=== PATIENT | female | born 1990 | race American Indian/Alaskan Native ===

== ENCOUNTER 2017-12-25 08:23 | Emergency (ER) | payer MEDICAID ==
[2017-12-25 09:20] LABS: Basophils # (Auto) 0.1 K/mm3 (0.0-0.1); Basophils % (Auto) 0.7 % (0.0-1.8); Eosinophils # (Auto) 0.1 K/mm3 (0.0-0.4); Eosinophils % (Auto) 0.9 % (0.0-4.3); Hematocrit 37.5 % (30.3-42.9); Hemoglobin 12.8 gm/dl (10.1-14.3); Lymphocytes # (Auto) 1.8 K/mm3 (1.2-5.4); Lymphocytes % (Auto) 16.8 % (13.4-35.0); Mean Corpuscular HGB Conc 34 % (30-34); Mean Corpuscular Hemoglobin 31 pg (28-32); Mean Corpuscular Volume 92 fl (79-97); Monocytes # (Auto) 0.7 K/mm3 (0.0-0.8); Platelet Count 257 K/mm3 (140-440); Red Blood Count 4.07 M/mm3 (3.65-5.03)
[2017-12-25 09:33] LABS: Alanine Aminotransferase 17 units/L (7-56); Albumin 4.3 g/dL (3.9-5); BUN/Creatinine Ratio 13; Blood Urea Nitrogen 9 mg/dL (7-17); Calcium 8.7 mg/dL (8.4-10.2); Hemolysis Index 7; Lipase 13 units/L (13-60)
[2017-12-25 12:16] LABS: HCG Qualitative,Urine Negative (Negative)
[2017-12-25 12:19] LABS: Bilirubin,Urine NEG (Negative); Blood,Urine LG (Negative); Color,Urine Yellow (Yellow); Mucus,Urine 2+ /HPF; Nitrite,Urine NEG (Negative); Protein,Urine <15 mg/dL mg/dL (Negative); Urobilinogen,Urine < 2.0 mg/dL (<2.0)
[2017-12-25 12:21] LABS: RBC,Urine > 182.0 /HPF (0.0-6.0)
[2017-12-25] MEDS ORDERED: ZOFRAN ODT PO ONE ×2 (12:27→14:06)
[2017-12-25] MEDS ORDERED: ZOFRAN ODT ONE (12:29)
[2017-12-25] MEDS ORDERED: BENTYL PO ONE (14:06)
--- NOTE | 2017-12-25 14:06 | Emergency Department Report ---
ED N/V/D HPI - General Chief complaint: Nausea/Vomiting/Diarrhea Stated complaint: FEVER, CHILLS VOMITING Time Seen by Provider: 12/25/17 13:42 Source: patient, family Mode of arrival: Ambulatory Limitations: No Limitations - History of Present Illness Initial comments: Patient reports nausea and vomiting with fever and chills for 3 days. Complaint abdominal cramping and that she started her period yesterday. Report diarrhea area 2 weeks on and off. Denies any back pain. Pain to abdomen is 10 out of 10, crampy no [id number] medication taken. Patient had similar incident with menses. MD complaint: nausea, vomiting, diarrhea, abdominal pain Onset/Timin -: week(s) Description of Vomiting: food contents Description of Diarrhea: water Associated Abdominal Pain: Yes Location: [place] Radiation: none Severity: severe Pain Scale: 10 Quality: cramping Consistency: constant Improves with: none Worsens with: none Context: possible food poisoning, other (unknown) Associated Symptoms: nausea/vomiting. denies: myalgias, chest pain, cough, diaphoresis, fever/chills, headaches, loss of appetite, malaise, rash, dysuria, shortness of breath, syncope, weakness - Related Data Previous Rx's Medication Instructions Recorded Last Taken Type Naproxen [EC-Naprosyn] 500 mg PO BID PRN #12 tablet. 12/25/17 Unknown Rx Promethazine [Phenergan TAB] 25 mg PO Q6HR PRN #12 tab 12/25/17 Unknown Rx Allergies Allergy/AdvReac Type Severity Reaction Status Date / Time No Known Allergies Allergy Unverified 12/25/17 08:52 ED Review of Systems ROS: Stated complaint: FEVER, CHILLS VOMITING Other details as noted in HPI Comment: All other systems reviewed and negative Constitutional: chills, fever Eyes: denies: eye pain ENT: denies: ear pain, throat pain, congestion Respiratory: no symptoms reported Cardiovascular: denies: chest pain, palpitations, syncope Gastrointestinal: abdominal pain, nausea, vomiting, diarrhea. denies: constipation, hematemesis, melena, hematochezia Genitourinary: denies: urgency, dysuria, frequency, hematuria Musculoskeletal: denies: back pain, joint swelling, arthralgia, myalgia Skin: denies: rash Neurological: denies: headache, weakness, numbness, paresthesias, confusion, abnormal gait, vertigo ED Past Medical Hx - Past Medical History Previous Medical History?: No - Surgical History Past Surgical History?: No - Family History Family history: no significant - Social History Smoking Status: Current Every Day Smoker Substance Use Type: Alcohol, Marijuana, Other - Medications Home Medications: Home Medications Medication Instructions Recorded Confirmed Last Taken Type Naproxen [EC-Naprosyn] 500 mg PO BID PRN #12 tablet.dr 12/25/17 Unknown Rx Promethazine [Phenergan TAB] 25 mg PO Q6HR PRN #12 tab 12/25/17 Unknown Rx ED Physical Exam - General Limitations: No Limitations General appearance: alert, in no apparent distress - Head Head exam: Present: atraumatic, normocephalic, normal inspection - Eye Eye exam: Present: normal appearance, PERRL, EOMI. Absent: periorbital swelling , periorbital tenderness Pupils: Present: normal accommodation - ENT ENT exam: Present: normal exam, normal orophraynx, mucous membranes moist, TM's normal bilaterally, normal external ear exam - Neck Neck exam: Present: normal inspection, full ROM. Absent: tenderness, meningismus, lymphadenopathy, thyromegaly - Respiratory Respiratory exam: Present: normal lung sounds bilaterally. Absent: respiratory distress, chest wall tenderness, accessory muscle use - Cardiovascular Cardiovascular Exam: Present: regular rate, normal rhythm, normal heart sounds. Absent: systolic murmur, diastolic murmur - GI/Abdominal GI/Abdominal exam: Present: soft, normal bowel sounds. Absent: distended, tenderness, guarding, rebound, rigid, organomegaly, mass, bruit, pulsatile mass , hernia - Extremities Exam Extremities exam: Present: normal inspection, full ROM, normal capillary refill , other (no clubbing, cyanosis or edema. +2 pulses to all extremities). Absent : tenderness, pedal edema, joint swelling, calf tenderness - Back Exam Back exam: Present: full ROM, other (ambulance without any difficulties). Absent: normal inspection, tenderness, CVA tenderness (R), CVA tenderness (L), muscle spasm, paraspinal tenderness, vertebral tenderness, rash noted - Neurological Exam Neurological exam: Present: alert, oriented X3, normal gait. Absent: motor sensory deficit, reflexes normal - Psychiatric Psychiatric exam: Present: normal affect, normal mood - Skin Skin exam: Present: warm, dry, intact, normal color. Absent: rash ED Course Vital Signs 12/25/17 12/25/17 08:53 18:42 Temperature 97.9 F 98.1 F Pulse Rate 83 74 Respiratory 16 18 Rate Blood Pressure 135/98 Blood Pressure 114/54 [Left] O2 Sat by Pulse 100 100 Oximetry - Reevaluation(s) Reevaluation #1: 12/25/17 15:30 Patient given Zofran ODT and then fell by mouth and she vomited. Not able to tolerate oral liquids at present therefore we'll start IV fluid with IV Anzemet emetic and pain medication along with Bentyl. Reevaluation #2: 12/25/17 17:02 Patient still with cramping and nausea after Zofran and Reglan. She received her first liter of normal saline. We'll give Ativan and IV fluid normal saline Reevaluation #3: 12/25/17 17:52 Patient given additional 4 mg of morphine IV and Zofran 4 mg IV. She says she is feeling better. Patient on route to ultrasound. Reevaluation #4: 12/25/17 19:10 Patient says she is feeling much better after 2 L of fluid, pain control and Zofran. She is able to tolerate by mouth liquids without any nausea or vomiting. ED Medical Decision Making - Lab Data Result diagrams: 12/25/17 09:00 12/25/17 09:00 Lab Results 12/25/17 12/25/17 12/25/17 Range/Units 09:00 09:00 11:07 WBC 10.5 (4.5-11.0) K/mm3 RBC 4.07 (3.65-5.03) M/mm3 Hgb 12.8 (10.1-14.3) gm/dl Hct 37.5 (30.3-42.9) % MCV 92 (79-97) fl MCH 31 (28-32) pg MCHC 34 (30-34) % RDW 13.0 L (13.2-15.2) % Plt Count 257 (140-440) K/mm3 Lymph % (Auto) 16.8 (13.4-35.0) % [place] % (Auto) 7.0 (0.0-7.3) % Eos % (Auto) 0.9 (0.0-4.3) % Baso % (Auto) 0.7 (0.0-1.8) % Lymph # 1.8 (1.2-5.4) K/mm3 [place] # 0.7 (0.0-0.8) K/mm3 Eos # 0.1 (0.0-0.4) K/mm3 Baso # 0.1 (0.0-0.1) K/mm3 Seg Neutrophils % 74.6 H (40.0-70.0) % Seg Neutrophils # 7.8 H (1.8-7.7) K/mm3 Sodium 141 (137-145) mmol/L Potassium 3.7 (3.6-5.0) mmol/L Chloride 106.2 (98-107) mmol/L Carbon Dioxide 22 (22-30) mmol/L Anion Gap 17 mmol/L BUN 9 (7-17) mg/dL Creatinine 0.7 (0.7-1.2) mg/dL Estimated GFR > 60 ml/min BUN/Creatinine Ratio 13 % Glucose 99 (65-100) mg/dL Calcium 8.7 (8.4-10.2) mg/dL Total Bilirubin 0.60 (0.1-1.2) mg/dL AST 15 (5-40) units/L ALT 17 (7-56) units/L Alkaline Phosphatase 52 (35-129) units/L Total Protein 7.4 (6.3-8.2) g/dL Albumin 4.3 (3.9-5) g/dL Albumin/Globulin Ratio 1.4 % Lipase 13 (13-60) units/L Urine Color Yellow (Yellow) Urine Turbidity Clear (Clear) Urine pH 6.0 (5.0-7.0) Ur Specific [place] 1.017 (1.003-1.030) Urine Protein <15 mg/dl (Negative) mg/dL Urine Glucose (UA) Neg (Negative) mg/dL Urine Ketones Neg (Negative) mg/dL Urine Blood Lg (Negative) Urine Nitrite Neg (Negative) Ur Reducing Substances Not Reportable Urine Bilirubin Neg (Negative) Urine Ictotest Not Reportable Urine Urobilinogen < 2.0 (<2.0) mg/dL Ur Leukocyte Esterase Neg (Negative) Urine WBC (Auto) 2.0 (0.0-6.0) /HPF Urine RBC (Auto) > 182.0 (0.0-6.0) /HPF U Epithel Cells (Auto) 2.0 (0-13.0) /HPF Urine Mucus 2+ /HPF Urine HCG, Qual Negative (Negative) Patient started her period yesterday - Radiology Data Radiology results: report reviewed Ultrasound pelvis and and transvaginal reveals normal exam - Medical Decision Making ED course: She reports that she's been having in nausea vomiting diarrhea with fever and chills for over 3 days but prior to that she's been having diarrhea 2 weeks on and off and did have an abdominal cramp in that started yesterday when she started her period. Abdominal exam is normal. Lab work reveals no acute findings. Urinalysis is stable and negative test. Patient was given IV fluids 2 L normal saline in the emergency room. She was given Bentyl by mouth which she was not able to retain. She was given Zofran ODT. Patient is still with nausea and vomiting and abdominal pain. Patient was given Toradol 30 mg IV, Zofran 4 mg IV 2 . She was given morphine 4 mg IV. After 2 L of normal saline and multiple antiemetic ,she stated that she was feeling a lot better. Abdominal pain, nausea and vomiting with diarrhea is controlled. Patient had no episode of diarrhea while in the emergency room exam.. She is able to tolerate oral liquids in the emergency room without any nausea or vomiting. Ultrasound reports reveal patient with normal pelvis/transvaginal exam. I discussed lab report and ultrasound results the patient and she voiced understanding. Patient discharged home to follow up with [facility] and her primary care physician in 2 days or to return to emergency room if symptoms recur. Discharged home with prescription for Naprosyn and Phenergan. Critical care attestation.: If time is entered above; I have spent that time in minutes in the direct care of this critically ill patient, excluding procedure time. ED Disposition Clinical Impression: Abdominal cramping, Nausea vomiting and diarrhea Disposition: TO HOME OR SELFCARE Is pt being admited?: No Does the pt Need Aspirin: No Condition: Stable Instructions: Acute Nausea and Vomiting (ED), Abdominal Pain (ED) Additional Instructions: increased fluid intake to 2-3 L of fluid to include water, Gatorade and/or apple juice. Take medication as prescribed for stomach cramping and nausea Practice good hand hygiene Follow-up with her primary care physician in one to [address] or operate heavy machinery while taking phenergan as this medication causes drowsiness Prescriptions: Naproxen [EC-Naprosyn] 500 mg PO BID PRN #12 tablet.dr PRN Reason: Menstrual Cramps Promethazine [Phenergan TAB] 25 mg PO Q6HR PRN #12 tab PRN Reason: Nausea Referrals: [facility] [Outside] - 2-3 Days LISANDRO CALLE MD [Staff Physician] - 2-3 Days Forms: Work/School Release Form(ED)
[2017-12-25] MEDS ORDERED: BENTYL ONE (14:31)
[2017-12-25] MEDS ORDERED: ZOFRAN IV ONE ×2 (15:31→17:15)
[2017-12-25] MEDS ORDERED: BENTYL IM ONE (15:31)
[2017-12-25] MEDS ORDERED: TORADOL IV ONE (15:31)
[2017-12-25] MEDS ORDERED: REGLAN IV ONE (15:55)
[2017-12-25] MEDS ORDERED: REGLAN ONE (15:56)
[2017-12-25] MEDS ORDERED: NACL 0.9% 1000 ML 1,000 ML ONE (15:57)
[2017-12-25] MEDS ORDERED: NACL 0.9% 1000 ML 1,000 ML IV ONE ×2 (16:10→17:08)
[2017-12-25] MEDS ORDERED: VALIUM IV ONE (16:40)
[2017-12-25] MEDS ORDERED: ATIVAN IV ONE (16:58)
[2017-12-25] MEDS ORDERED: MORPHINE IV ONE (17:03)
[2017-12-25] MEDS ORDERED: PHENERGAN PR ONE (17:16)
--- NOTE | 2017-12-25 18:38 | Ultrasound Report ---
FINAL REPORT PROCEDURE: US TRANSVAGINAL and transabdominal with Doppler TECHNIQUE: Real-time transabdominal sonography in multiple planes of the pelvis was performed. The pelvic structures were not optimally visualized. Transvaginal sonography was then performed to better evaluate the structures and/or abnormalities described below with image documentation. Grayscale, color flow Doppler imaging and velocity spectral waveform analysis of the ovaries was employed (duplex imaging). CPT 08697, 77955, and 30942 HISTORY: abdominal pain COMPARISON: No prior studies are available for comparison. FINDINGS: UTERUS Size: 13.5 x 4.7 x 5.6 cm. Endometrial thickness: 5 mm. Orientation: Retroflexed. Cervix: Normal. Fibroids/masses: None. RIGHT Ovary: 2.8 x 1.7 x 1.7 cm. Appearance: Normal. Doppler images: Normal spectral waveforms and color flow. The systolic and diastolic velocities are within normal limits. LEFT Ovary: 3.6 x 2.0 x 2.4 cm. Appearance: Normal. Doppler images: Normal spectral waveforms and color flow. The systolic and diastolic velocities are within normal limits. Pelvic fluid: None. Other: None. IMPRESSION: Unremarkable exam
--- NOTE | 2017-12-25 18:38 | Ultrasound Report ---
FINAL REPORT PROCEDURE: US TRANSVAGINAL and transabdominal with Doppler TECHNIQUE: Real-time transabdominal sonography in multiple planes of the pelvis was performed. The pelvic structures were not optimally visualized. Transvaginal sonography was then performed to better evaluate the structures and/or abnormalities described below with image documentation. Grayscale, color flow Doppler imaging and velocity spectral waveform analysis of the ovaries was employed (duplex imaging). CPT 44528, 93485, and 00156 HISTORY: abdominal pain COMPARISON: No prior studies are available for comparison. FINDINGS: UTERUS Size: 13.5 x 4.7 x 5.6 cm. Endometrial thickness: 5 mm. Orientation: Retroflexed. Cervix: Normal. Fibroids/masses: None. RIGHT Ovary: 2.8 x 1.7 x 1.7 cm. Appearance: Normal. Doppler images: Normal spectral waveforms and color flow. The systolic and diastolic velocities are within normal limits. LEFT Ovary: 3.6 x 2.0 x 2.4 cm. Appearance: Normal. Doppler images: Normal spectral waveforms and color flow. The systolic and diastolic velocities are within normal limits. Pelvic fluid: None. Other: None. IMPRESSION: Unremarkable exam PROCEDURE: TECHNIQUE: HISTORY: COMPARISON: FINDINGS: IMPRESSION:
[2017-12-25 18:43] VITALS: BP 114/54
== END 2017-12-25 19:25 | disposition home or self-care (01) ==
LOC: ED 08:23
DX: R11.2 Nausea with vomiting, unspecified (principal); R19.7 Diarrhea, unspecified; R10.9 Unspecified abdominal pain; R50.9 Fever, unspecified; F17.200 Nicotine dependence, unspecified, uncomplicated; F12.10 Cannabis abuse, uncomplicated
CPT/HCPCS: 36415; 76830; 80053; 81001; 81025; 83690; 85025; 93975; 96361; 96372; 96374; 96375; 96376; 99284; J0500; J1885; J2060; J2270; J2405; J2765; J3360; J7030; Q0162

== ENCOUNTER 2017-12-27 20:41 | Emergency (ER) | payer SELFPAY ==
[2017-12-27] MEDS ORDERED: NACL 0.9% 1000 ML 1,000 ML IV ONE (21:34)
[2017-12-27 22:28] LABS: Basophils # (Auto) 0.1 K/mm3 (0.0-0.1); Basophils % (Auto) 0.9 % (0.0-1.8); Eosinophils # (Auto) 0.1 K/mm3 (0.0-0.4); Eosinophils % (Auto) 1.8 % (0.0-4.3); Hematocrit 34.3 % (30.3-42.9); Hemoglobin 11.3 gm/dl (10.1-14.3); Lymphocytes # (Auto) 2.6 K/mm3 (1.2-5.4); Mean Corpuscular HGB Conc 33 % (30-34); Mean Corpuscular Hemoglobin 30 pg (28-32); Mean Corpuscular Volume 92 fl (79-97); Monocytes # (Auto) 0.8 K/mm3 (0.0-0.8); Monocytes % (Auto) 9.5 % (0.0-7.3); Platelet Count 236 K/mm3 (140-440); Red Blood Count 3.73 M/mm3 (3.65-5.03); Red Cell Distribution Width 12.8 % (13.2-15.2)
[2017-12-27 22:37] LABS: Bacteria,Urine 1+ /HPF (Negative); Bilirubin,Urine NEG (Negative); Blood,Urine MOD (Negative); Color,Urine Yellow (Yellow); Mucus,Urine FEW /HPF; Nitrite,Urine NEG (Negative); Protein,Urine <15 mg/dL mg/dL (Negative); Urobilinogen,Urine < 2.0 mg/dL (<2.0)
[2017-12-27 22:39] LABS: INR 0.98 (0.87-1.13); Partial Thromboplastin Time 31.3 Sec. (24.2-36.6)
[2017-12-27 22:50] LABS: Alanine Aminotransferase 12 units/L (7-56); Albumin 3.8 g/dL (3.9-5); BUN/Creatinine Ratio 9; Blood Urea Nitrogen 6 mg/dL (7-17); Calcium 8.7 mg/dL (8.4-10.2); Hemolysis Index 8; Lipase 32 units/L (13-60)
[2017-12-27 23:00] VITALS: BP 151/91
[2017-12-27] MEDS ORDERED: ZOFRAN IV ONE (23:02)
[2017-12-27] MEDS ORDERED: K-DUR PO ONE (23:02)
--- NOTE | 2017-12-27 23:02 | Emergency Department Report ---
HPI - General Chief Complaint: Abdominal Pain Time Seen by Provider: 12/27/17 22:49 - HPI HPI: Harsha 28 The patient is a 27-year-old female presented with a chief complaint of abdominal pain and hematochezia. The patient states she's had diarrhea for the past 3 weeks gone over 3+ times daily. Patient is to nausea and vomiting but states that resolved 2 days ago. 2 days ago the patient states her stool became orangeish and reddish and then she passed bright red blood per rectum. Patient states she's had intermittent lower abdominal pain in addition to left abdominal pain. Patient denies any history of fever. Patient denies being on any antibiotics recently. The patient states her abdominal pain is intermittent but she currently does not have any. Location: Abdomen Duration: [See above] Quality: Pain Severity: Currently 0/10 Modifying factors: [see above] Context: [see above] Mode of transportation: [not driving] ED Past Medical Hx - Past Medical History Previous Medical History?: No - Surgical History Past Surgical History?: No - Family History Family history: no significant - Social History Smoking Status: Current Every Day Smoker Substance Use Type: None (denies illicit drug use), Alcohol (occasional) - Medications Home Medications: Home Medications Medication Instructions Recorded Confirmed Last Taken Type Naproxen [EC-Naprosyn] 500 mg PO BID PRN #12 tablet. 12/25/17 Unknown Rx Promethazine [Phenergan TAB] 25 mg PO Q6HR PRN #12 tab 12/25/17 Unknown Rx Ciprofloxacin HCl [Cipro] 500 mg PO BID #14 tablet 12/28/17 Unknown Rx Diphenoxylate/Atropine [Lomotil] 2 tab PO QID PRN #20 tablet 12/28/17 Unknown Rx HYDROcodone/APAP 5-325 [[place] 1 - 2 each PO Q6HR PRN #10 tablet 12/28/17 Unknown Rx 5/325] metroNIDAZOLE [Flagyl] 500 mg PO Q8HR #21 tablet 12/28/17 Unknown Rx ED Review of Systems ROS: Stated complaint: RECTAL BLEEDING Other details as noted in HPI Constitutional: denies: fever Gastrointestinal: abdominal pain, nausea, vomiting, diarrhea, hematochezia Genitourinary: denies: urgency, dysuria, discharge Physical Exam - Physical Exam Vital Signs: Vital Signs 12/27/17 21:28 Temperature 98 F Pulse Rate 64 Respiratory 18 Rate Blood Pressure 138/80 O2 Sat by Pulse 100 Oximetry Physical Exam: GENERAL: The patient is well-developed well-nourished female lying on stretcher not appearing to be in acute distress. [] HEENT: Normocephalic. Atraumatic. Extraocular motions are intact. Patient has moist mucous membranes. NECK: Supple. Trachea midline CHEST/LUNGS: Clear to auscultation. There is no respiratory distress noted. HEART/CARDIOVASCULAR: Regular. There is no tachycardia. There is no gallop rub or murmur. ABDOMEN: Abdomen is soft, with mild discomfort to palpation in the left lower quadrant and left upper quadrant. Patient has normal bowel sounds. There is no abdominal distention. SKIN: There is no rash. There is no edema. There is no diaphoresis. NEURO: The patient is awake, alert, and oriented. The patient is cooperative. The patient has normal speech MUSCULOSKELETAL: There is no evidence of acute injury. RECTUM: No evidence of external hemorrhoid. No internal hemorrhoids palpated. Guaiac negative ED Course Vital Signs 12/27/17 21:28 Temperature 98 F Pulse Rate 64 Respiratory 18 Rate Blood Pressure 138/80 O2 Sat by Pulse 100 Oximetry ED Medical Decision Making - Lab Data Result diagrams: 12/27/17 22:09 12/27/17 22:09 Laboratory Tests 12/27/17 12/27/17 12/27/17 22:09 22:09 22:09 WBC 8.2 RBC 3.73 Hgb 11.3 Hct 34.3 MCV 92 MCH 30 MCHC 33 RDW 12.8 L Plt Count 236 Lymph % (Auto) 32.0 Iron % (Auto) 9.5 H Eos % (Auto) 1.8 Baso % (Auto) 0.9 Lymph # 2.6 Iron # 0.8 Eos # 0.1 Baso # 0.1 Seg Neutrophils % 55.8 Seg Neutrophils # 4.6 PT 13.5 INR 0.98 APTT 31.3 Sodium 139 Potassium 3.2 L Chloride 101.9 Carbon Dioxide 24 Anion Gap 16 BUN 6 L Creatinine 0.7 Estimated GFR > 60 BUN/Creatinine Ratio 9 Glucose 87 Calcium 8.7 Total Bilirubin 0.70 AST 12 ALT 12 Alkaline Phosphatase 48 Total Protein 6.9 Albumin 3.8 L Albumin/Globulin Ratio 1.2 Lipase 32 HCG, Qual Urine Color Urine Turbidity Urine pH Ur Specific [place] Urine Protein Urine Glucose (UA) Urine Ketones Urine Blood Urine Nitrite Urine Bilirubin Urine Urobilinogen Ur Leukocyte Esterase Urine WBC (Auto) Urine RBC (Auto) U Epithel Cells (Auto) Urine Bacteria (Auto) Urine Mucus 12/27/17 12/27/17 22:09 Unknown WBC RBC Hgb Hct MCV MCH MCHC RDW Plt Count Lymph % (Auto) Iron % (Auto) Eos % (Auto) Baso % (Auto) Lymph # Iron # Eos # Baso # Seg Neutrophils % Seg Neutrophils # PT INR APTT Sodium Potassium Chloride Carbon Dioxide Anion Gap BUN Creatinine Estimated GFR BUN/Creatinine Ratio Glucose Calcium Total Bilirubin AST ALT Alkaline Phosphatase Total Protein Albumin Albumin/Globulin Ratio Lipase HCG, Qual Negative Urine Color Yellow Urine Turbidity Clear Urine pH 6.0 Ur Specific [place] 1.010 Urine Protein <15 mg/dl Urine Glucose (UA) Neg Urine Ketones Tr Urine Blood Mod Urine Nitrite Neg Urine Bilirubin Neg Urine Urobilinogen < 2.0 Ur Leukocyte Esterase Tr Urine WBC (Auto) 7.0 H Urine RBC (Auto) 2.0 U Epithel Cells (Auto) 3.0 Urine Bacteria (Auto) 1+ Urine Mucus Few - Radiology Data Radiology results: report reviewed (CT abdomen and pelvis, pelvic ultrasound), image reviewed (CT abdomen and pelvis, pelvic ultrasound) FINAL REPORT EXAM: CT ABDOMEN PELVIS W CON HISTORY: left-sided abdominal pain, hematochezia TECHNIQUE: Routine axial imaging was obtained of the abdomen and pelvis following the intravenous injection of 100 cc of Omnipaque 300. Delayed axial imaging was obtained for evaluation the kidneys ureters and bladder. Sagittal and coronal reconstructions were reviewed. FINDINGS: The lung bases are clear. Pleural fluid is not seen. The liver, gallbladder, pancreas, spleen, and adrenal glands appear normal. The kidneys enhance normally. There is no evidence of hydronephrosis. The ureters appear normal. The vascular structures enhance normally. The bowel loops are normal in caliber. There is non specific radiopaque material in several bowel loops. This is of uncertain etiology. In the pelvis there are multiple nondistended fluid-filled loops of small bowel above the bladder. In the right adnexal area there is a irregular fluid collection measuring 4 cm x 2.7 cm. A small abscess cannot be excluded. The uterus is retroverted. There is a small amount of free fluid in cul-de-sac. The appendix is not identified with certainty. The bladder appears normal. The skeletal structures are well-maintained. IMPRESSION: Irregular right adnexal fluid collection in the pelvis measuring 4 cm x 2.7 cm. A small abscess cannot be excluded. The appendix is not identified with certainty. Several nondistended fluid-filled loops of small bowel above the bladder noted. With this is related to localized inflammatory process is uncertain. No evidence of bowel obstruction otherwise No acute process in the upper abdomen otherwise. Transcribed By: ZOE Dictated By: RADHA NASCIMENTO MD Electronically Authenticated By: RADHA NASCIMENTO MD Signed Date/Time: 12/27/172055 DD/ 55 TD/TT: 12/27/172055 FINAL REPORT EXAM: US TRANSVAGINAL HISTORY: right adnexal fluid collection seen on CT TECHNIQUE: Transvaginal imaging was obtained of the pelvis including Doppler interrogation of the adnexa. Earlier CT scan of 12/27/2017 was reviewed for correlation. FINDINGS: The uterus is retroflexed measuring 7.3 cm x 5 cm x 6.2 cm. The myometrium is homogeneous. The endometrium is 3.4 millimeters. There is a very small amount of free fluid in cul-de-sac. No definite right adnexal fluid collection is seen. The right ovary measures 2.7 cm x 1.8 cm x 2.1 cm and contains benign-appearing follicles. The left ovary measures 2.9 cm x 2.3 cm x 2.1 cm. There benign-appearing follicles in left ovary. Both ovaries reveal normal blood flow. IMPRESSION: Normal-appearing ovaries with benign-appearing follicles. No evidence of ovarian torsion. Small amount of free fluid in the cul-de-sac. No definite right adnexal fluid collection identified. The finding on the CT scan most likely represents an unopacified bowel loop. Normal-appearing retroflexed uterus and endometrium. Transcribed By: ZOE Dictated By: RADHA NASCIMENTO MD Electronically Authenticated By: RADHA NASCIMENTO MD Signed Date/Time: 12/27/172301 DD/ 01 TD/TT: 12/27/172301 - Differential Diagnosis gastroenteritis, partial small bowel obstruction, colonic lesion Critical care attestation.: If time is entered above; I have spent that time in minutes in the direct care of this critically ill patient, excluding procedure time. ED Disposition Clinical Impression: Acute abdominal pain, Hematochezia, UTI (urinary tract infection) Disposition: DC-01 TO HOME OR SELFCARE Is pt being admited?: No Does the pt Need Aspirin: No Condition: Stable Instructions: Abdominal Pain (ED) Additional Instructions: Return to the emergency department immediately should you develop worsening symptoms, fever, inability to tolerate food or liquid or any other concerns. Prescriptions: Ciprofloxacin HCl [Cipro] 500 mg PO BID #14 tablet Diphenoxylate/Atropine [Lomotil] 2 tab PO QID PRN #20 tablet PRN Reason: Diarrhea HYDROcodone/APAP 5-325 [[place] 5/325] 1 - 2 each PO Q6HR PRN #10 tablet PRN Reason: Pain metroNIDAZOLE [Flagyl] 500 mg PO Q8HR #21 tablet Referrals: [facility] [Outside] - 3-5 Days ATUL DEL CASTILLO MD [Staff Physician] - 3-5 Days (Dr. Del Castillo is a primary physician. Please follow up with him to be established as a patient) MATTHEW NAVA MD [Staff Physician] - 3-5 Days (Dr. Nava is a senior android developer. Please follow-up with him for further evaluation) Time of Disposition: 03:30
--- NOTE | 2017-12-28 00:59 | Cat Scan Report ---
FINAL REPORT EXAM: CT ABDOMEN PELVIS W CON HISTORY: left-sided abdominal pain, hematochezia TECHNIQUE: Routine axial imaging was obtained of the abdomen and pelvis following the intravenous injection of 100 cc of Omnipaque 300. Delayed axial imaging was obtained for evaluation the kidneys ureters and bladder. Sagittal and coronal reconstructions were reviewed. FINDINGS: The lung bases are clear. Pleural fluid is not seen. The liver, gallbladder, pancreas, spleen, and adrenal glands appear normal. The kidneys enhance normally. There is no evidence of hydronephrosis. The ureters appear normal. The vascular structures enhance normally. The bowel loops are normal in caliber. There is non specific radiopaque material in several bowel loops. This is of uncertain etiology. In the pelvis there are multiple nondistended fluid-filled loops of small bowel above the bladder. In the right adnexal area there is a irregular fluid collection measuring 4 cm x 2.7 cm. A small abscess cannot be excluded. The uterus is retroverted. There is a small amount of free fluid in cul-de-sac. The appendix is not identified with certainty. The bladder appears normal. The skeletal structures are well-maintained. IMPRESSION: Irregular right adnexal fluid collection in the pelvis measuring 4 cm x 2.7 cm. A small abscess cannot be excluded. The appendix is not identified with certainty. Several nondistended fluid-filled loops of small bowel above the bladder noted. With this is related to localized inflammatory process is uncertain. No evidence of bowel obstruction otherwise No acute process in the upper abdomen otherwise.
--- NOTE | 2017-12-28 03:05 | Ultrasound Report ---
FINAL REPORT EXAM: US TRANSVAGINAL HISTORY: right adnexal fluid collection seen on CT TECHNIQUE: Transvaginal imaging was obtained of the pelvis including Doppler interrogation of the adnexa. Earlier CT scan of 12/27/2017 was reviewed for correlation. FINDINGS: The uterus is retroflexed measuring 7.3 cm x 5 cm x 6.2 cm. The myometrium is homogeneous. The endometrium is 3.4 millimeters. There is a very small amount of free fluid in cul-de-sac. No definite right adnexal fluid collection is seen. The right ovary measures 2.7 cm x 1.8 cm x 2.1 cm and contains benign-appearing follicles. The left ovary measures 2.9 cm x 2.3 cm x 2.1 cm. There benign-appearing follicles in left ovary. Both ovaries reveal normal blood flow. IMPRESSION: Normal-appearing ovaries with benign-appearing follicles. No evidence of ovarian torsion. Small amount of free fluid in the cul-de-sac. No definite right adnexal fluid collection identified. The finding on the CT scan most likely represents an unopacified bowel loop. Normal-appearing retroflexed uterus and endometrium.
--- NOTE | 2017-12-28 03:07 | Ultrasound Report ---
FINAL REPORT EXAM: US PELVIC COMPLETE HISTORY: right adnexal fluid collection seen on CT TECHNIQUE: Transabdominal imaging was obtained of the pelvis including Doppler interrogation of the adnexa. Correlation with the earlier CT scan is obtained. FINDINGS: The uterus is retroflexed measuring 7.3 cm x 5 cm x 6.2 cm. The myometrium is homogeneous. The endometrium is normal in thickness at 3.4 millimeters. There is a small amount of free fluid in the cul-de-sac. The right ovary is normal size and contour measuring 2.7 cm x 1.8 cm x 2.1 cm. There are benign follicles in right ovary. The blood flow is normal right ovary. The left ovary is normal size and contour measuring 2.9 cm x 2.3 cm x 2.1 cm. There are benign-appearing follicles in left ovary. The blood flow is normal to left ovary. IMPRESSION: No evidence of right adnexal fluid collection. The finding on the CT scan most likely represents unopacified bowel loop in the right adnexa. Normal-appearing ovaries containing follicles. Normal-appearing retroflexed uterus and endometrium. Small amount of free fluid in the cul-de-sac.
== END 2017-12-28 03:44 | disposition home or self-care (01) ==
LOC: ED 20:41
DX: K92.1 Melena (principal); N39.0 Urinary tract infection, site not specified; F17.200 Nicotine dependence, unspecified, uncomplicated
CPT/HCPCS: 36415; 74177; 76830; 76856; 80053; 81001; 82271; 83690; 84703; 85025; 85610; 85730; 86850; 86900; 86901; 93005; 93010; 96374; 99284; J2405; Q9967